=== PATIENT | female | born 1955 | race Caucasian/White ===

== ENCOUNTER 2018-06-22 07:28 | Emergency (ER) | payer BC ==
[2018-06-22 07:40] VITALS: BP 150/85
[2018-06-22] MEDS ORDERED: Lidocaine/Epineph/Tetraca SOL* (LET solution) 4 ML BTL TOPICAL ONE (08:25)
[2018-06-22] MEDS ORDERED: Ibuprofen TAB* 400 MG PO ONE (08:33)
[2018-06-22] MEDS ORDERED: Tetan/Diph/Pertus SYR(Tdap)* 0.5 ML SYR(BOOSTRIX) use SYR IM ONE (08:34)
--- NOTE | 2018-06-22 08:55 | UC ---
Laceration HPI - HPI Summary HPI Summary: WAS WALKING THROUGH HER POND ON HER PROPERTY WHEN SHE SLIPPED ON SOME ALGAE. FELL BACK AND STRUCK HER HEAD ON A ROCK. NO LOC. ALSO LACERATED HER RIGHT 1ST INTERDIGITAL WEBSPACE. LAST TETANUS ABOUT 5 YEARS AGO. - History Of Current Complaint Chief Complaint: UCLaceration Stated Complaint: HEAD LAC FINGER LAC Time Seen by Provider: 06/22/18 08:04 Hx Obtained From: Patient Laceration Location: Head - POSTERIOR SCALP AND RIGHT HAND Onset/Duration: Sudden Onset, Lasting Hours Severity: Moderate Pain Intensity: 5 Pain Scale Used: 0-10 Numeric - Allergies/Home Medications Allergies/Adverse Reactions: Allergies Allergy/AdvReac Type Severity Reaction Status Date / Time citalopram Allergy Unknown Verified 06/22/18 07:42 Reaction Details codeine Allergy See Comment Verified 06/22/18 07:42 Tetracyclines Allergy See Comment Verified 06/22/18 07:42 Home Medications: Home Medications Magnesium 30 mg PO 06/22/18 [History] PMH/Surg Hx/FS Hx/Imm Hx Previously Healthy: Yes - Surgical History Surgical History: Yes Surgery Procedure, Year, and Place: left lumpectomy;benign cyst removed; wisdom teeth - Family History Known Family History: Positive: Cardiac Disease - MOTHER WITH CHF Negative: Hypertension - Social History Alcohol Use: Daily Alcohol Amount: a few glasses of wine daily Substance Use Type: None Smoking Status (MU): Former Smoker When Did the Patient Quit Smoking/Using Tobacco: 25+ yrs ago - Immunization History Most Recent Tetanus Shot: January 2013 Review of Systems Constitutional: Negative Skin: Other - LACERATION POSTERIOR SCALP AND RIGHT HAND Respiratory: Negative Cardiovascular: Negative Gastrointestinal: Negative All Other Systems Reviewed And Are Negative: Yes Physical Exam Triage Information Reviewed: Yes Appearance: Well-Appearing, No Pain Distress, Well-Nourished Vital Signs: Initial Vital Signs Temp 97.9 F 06/22/18 07:37 Pulse 65 06/22/18 07:37 Resp 18 06/22/18 07:37 BP 150/85 06/22/18 07:37 Pulse Ox 100 06/22/18 07:37 Vital Signs Reviewed: Yes Eyes: Positive: Conjunctiva Clear ENT: Positive: Hearing grossly normal, Pharynx normal, TMs normal Neck: Positive: Supple Respiratory: Positive: No respiratory distress, No accessory muscle use Cardiovascular: Positive: Pulses Normal Abdomen Description: Positive: Soft Musculoskeletal: Positive: No Edema Neurological: Positive: Alert, Other: - CN II-XII GROSSLY INTACT BILATERALLY. RAPID ALTERNATING MOVEMENTS INTACT. NEG PRONATOR DRIFT. 5/5 STRENGTH. HEEL TO PAGE INTACT BILATERALLY. FINGER TO NOSE INTACT. Psychological: Positive: Age Appropriate Behavior Skin: Positive: Other - 2.5CM LINEAR LACERATION POSTERIOR SCALP. 1.5CM LINEAR LACERATION RIGHT HAND 1ST [employer] Laceration Repair - Laceration Repair 1 Description: Linear Laceration Size After Repair: Length (cm) - 2.5CM, Width (mm) - 0MM, Depth (mm) - 5MM Modified For Repair: No Irrigation With Pressure Irrigation Device: Yes Closure Material: Silvio - #2 2 Description: Linear Laceration Size After Repair: Length (cm) - 1.5CM, Width (mm) - 0MM, Depth (mm) - 1MM Modified For Repair: No Irrigation With Pressure Irrigation Device: Yes Closure Material: Skin Adhesive, SteriStrips Laceration Course/Dx - Differential Dx - Laceration/Wound Provider Diagnoses: 1. LACERATION REPAIR POSTERIOR SCALP AND RIGHT HAND. 2. TDAP BOOSTER Discharge - Sign-Out/Discharge Documenting (check all that apply): Patient Departure - Discharge Plan Condition: Stable Disposition: HOME Patient Education Materials: Laceration (ED), Head Injury (ED) Referrals: Alma Camargo MD [Primary Care Provider] - If Needed Additional Instructions: SEEK FOLLOW-UP IF YOU DEVELOP SPREADING REDNESS OF THE SKIN, PURULENT DRAINAGE, FEVER, INCREASED PAIN OR ANY OTHER CONCERNING SYMPTOMS. RETURN TO HAVE YOUR 2 SILVIO REMOVED IN 10 DAYS THE STERISTRIPS WILL FALL OFF ON THEIR OWN IN THE NEXT 1-2 WEEKS. DO NOT PUT ANY OINTMENT ON TOP OF THEM. DO NOT SUBMERGE IN WATER FOR PROLONGED PERIOD OF TIME. OKAY FOR BRIEF SHOWER AFTER 24 HOURS AND THEN BE SURE TO ALLOW TO DRY COMPLETELY. GO TO THE ER WITHOUT FAIL IF YOU DEVELOP UNEQUAL PUPILS, VISUAL DISTURBANCE, GAIT INSTABILITY, SPEECH DIFFICULTY, NAUSEA/VOMITING, WORSENING HEADACHE, DIZZINESS, CONFUSION, WEAKNESS OR ANY OTHER CONCERNING SYMPTOMS. TETANUS IMMUNIZATION GIVEN (TDAP): You have been given an immunization against tetanus. Please record this in your records. In general, a booster is needed only once every 10 years. The tetanus shot protects against tetanus or "lockjaw," which is a complication of certain wound infections (the tetanus shot cannot protect against the actual infection). The immunization site may become warm and red due to local reaction. If this occurs, apply warm compresses and take aspirin or ibuprofen to reduce inflammation and discomfort. Return for evaluation if the reaction becomes severe. - Billing Disposition and Condition Condition: STABLE Disposition: Home
== END 2018-06-22 09:00 | disposition home or self-care (01) ==
LOC: UCEAST 07:28
DX: S01.01XA Laceration without foreign body of scalp, initial encounter (principal); S61.411A Laceration without foreign body of right hand, initial encounter; W01.198A Fall on same level from slipping, tripping and stumbling with subsequent striking against other object, initial encounter; Y93.01 Activity, walking, marching and hiking; Y92.828 Other wilderness area as the place of occurrence of the external cause; Z23 Encounter for immunization; Z88.1 Allergy status to other antibiotic agents; Z88.5 Allergy status to narcotic agent; Z88.8 Allergy status to other drugs, medicaments and biological substances; Z87.891 Personal history of nicotine dependence
CPT/HCPCS: 12001; 12002; 12011; 90471; 90715; 99202; A9270-GY; G0463

== ENCOUNTER 2018-07-02 12:21 | Emergency (ER) | payer BC ==
[2018-07-02 14:45] VITALS: BP 145/81
--- NOTE | 2018-07-02 15:02 | UC ---
HPI Wound/Suture Re-check - HPI Summary HPI Summary: 2 hyun placed posterior scalp 06/22/18. Here for removal. Patient states it is healing well just feels a bit itchy. - History Of Current Complaint Stated Complaint: STAPLE REMOVAL Time Seen by Provider: 07/02/18 14:37 Hx Obtained From: Patient Severity: Mild Pain Intensity: 0 Pain Scale Used: 0-10 Numeric - Allergies/Home Medications Allergies/Adverse Reactions: Allergies Allergy/AdvReac Type Severity Reaction Status Date / Time citalopram Allergy Unknown Verified 07/02/18 14:37 Reaction Details codeine Allergy See Comment Verified 07/02/18 14:37 Tetracyclines Allergy See Comment Verified 07/02/18 14:37 PMH/Surg Hx/FS Hx/Imm Hx Cancer History: Breast Cancer - Surgical History Surgical History: Yes Surgery Procedure, Year, and Place: left lumpectomy;benign cyst removed; wisdom teeth - Family History Known Family History: Positive: Cardiac Disease - MOTHER WITH CHF Negative: Hypertension - Social History Alcohol Use: Daily Alcohol Amount: a few glasses of wine daily Substance Use Type: None Smoking Status (MU): Former Smoker When Did the Patient Quit Smoking/Using Tobacco: 25+ yrs ago - Immunization History Most Recent Tetanus Shot: January 2013 Review of Systems Constitutional: Negative Skin: Other - 2 [place] posterior scalp Respiratory: Negative Cardiovascular: Negative Gastrointestinal: Negative All Other Systems Reviewed And Are Negative: Yes Physical Exam Triage Information Reviewed: Yes Appearance: Well-Appearing, No Pain Distress, Well-Nourished Vital Signs: Initial Vital Signs Temp 97.8 F 07/02/18 14:37 Pulse 71 07/02/18 14:37 Resp 18 07/02/18 14:37 BP 145/81 07/02/18 14:37 Pulse Ox 97 07/02/18 14:37 Vital Signs Reviewed: Yes Eyes: Positive: Conjunctiva Clear ENT: Positive: Hearing grossly normal Neck: Positive: Supple Respiratory: Positive: No respiratory distress, No accessory muscle use Cardiovascular: Positive: Pulses Normal Abdomen Description: Positive: Soft Musculoskeletal: Positive: No Edema Neurological: Positive: Alert Psychological: Positive: Age Appropriate Behavior Skin: Positive: Other - 2 HYUN POSTERIOR SCALP WITH SOME CRUST. NO ERYTHEMA OR DRAINAGE. Course/Dx - Course Course Of Treatment: 2 HYUN REMOVED WITHOUT DIFFICULTY. - Differential Dx - Laceration/Wound Provider Diagnoses: STAPLE REMOVAL POSTERIOR SCALP Discharge - Sign-Out/Discharge Documenting (check all that apply): Patient Departure - Discharge Plan Condition: Stable Disposition: HOME Patient Education Materials: Stitches Removal (ED) Referrals: Angelica Lay [Primary Care Provider] - Additional Instructions: 2 HYUN REMOVED TODAY WITHOUT DIFFICULTY. THE CRUST WILL FLAKE OFF WITH TIME. DO NOT PICK AT IT. SEEK FOLLOW-UP IF YOU DEVELOP SPREADING REDNESS OF THE SKIN, PURULENT DRAINAGE, FEVER, INCREASED PAIN OR ANY OTHER CONCERNING SYMPTOMS. - Billing Disposition and Condition Condition: STABLE Disposition: Home
== END 2018-07-02 14:52 | disposition home or self-care (01) ==
LOC: UCEAST 12:21
DX: S01.01XD Laceration without foreign body of scalp, subsequent encounter (principal); X58.XXXD Exposure to other specified factors, subsequent encounter; Z88.1 Allergy status to other antibiotic agents; Z88.5 Allergy status to narcotic agent; Z88.8 Allergy status to other drugs, medicaments and biological substances; Z80.3 Family history of malignant neoplasm of breast; Z82.49 Family history of ischemic heart disease and other diseases of the circulatory system; Z87.891 Personal history of nicotine dependence

== ENCOUNTER 2018-07-15 07:43 | Emergency (ER) | payer BC ==
[2018-07-15 07:53] VITALS: BP 127/79
--- NOTE | 2018-07-15 08:15 | UC ---
Complaint Female HPI - HPI Summary HPI Summary: IN ROOM NOTE: A 62 y/o F presents to [facility] with c/o dysuria onset this AM. Associated sx: severe frequency. Denies n/v/d, and other complaints, states feeling well otherwise. Her last UTI was in November, she states getting them approx once a year. She does not recall the ABX given previously for UTI. Patient states drinking a lot of water. Medications reviewed. NOTE: A 62 y/o F, vital signs stable, afebrile, has c/o dysuria and frequency beginning this morning. PMHx: L breast CA 7 years ago, lumpectomy. Visit history : non-contributory to present complaint. UA is positive for blood and leukocyte esterase. Pt is allergic to tetracycline. NURSE'S NOTE: starting this morning, burning, frequency - History Of Current Complaint Chief Complaint: UCGU Stated Complaint: URINARY COMPLAINT Time Seen by Provider: 07/15/18 08:12 Hx Obtained From: Patient Hx Last Menstrual Period: na Onset/Duration: Lasting Hours - this AM, Still Present Timing: Constant, Lasting Hours Severity Initially: Moderate Severity Currently: Moderate Pain Intensity: 0 Pain Scale Used: 0-10 Numeric Associated Signs And Symptoms: Positive: Negative. Negative: Nausea, Vomiting( # Of Episodes =) - Allergies/Home Medications Allergies/Adverse Reactions: Allergies Allergy/AdvReac Type Severity Reaction Status Date / Time citalopram Allergy Unknown Verified 07/15/18 07:53 Reaction Details codeine Allergy See Comment Verified 07/15/18 07:53 Tetracyclines Allergy See Comment Verified 07/15/18 07:53 PMH/Surg Hx/FS Hx/Imm Hx Previously Healthy: No - breast CA Respiratory History: Bronchitis Psychological History: Anxiety - Surgical History Surgical History: Yes Surgery Procedure, Year, and Place: left lumpectomy;benign cyst removed; wisdom teeth - Family History Known Family History: Positive: Cardiac Disease - MOTHER WITH CHF, at 92 Negative: Hypertension - Social History Occupation: Employed Full-time Lives: With Family Alcohol Use: Daily Alcohol Amount: a few glasses of wine daily Substance Use Type: None Smoking Status (MU): Former Smoker When Did the Patient Quit Smoking/Using Tobacco: 25+ yrs ago - Immunization History Most Recent Tetanus Shot: January 2013 Review of Systems Constitutional: Negative - fever Gastrointestinal: Negative - n/v/d Genitourinary: Dysuria, Frequency All Other Systems Reviewed And Are Negative: Yes - Comments Additional Review of Systems Comments: POSITIVE: DYSURIA, FREQUENCY NEGATIVE: N/V/D, ALL OTHER SYSTEMS Physical Exam - Summary Physical Exam Summary: Appearance: The patient is well-appearing, is in no pain distress, and is well- nourished. Eyes: Conjunctiva are clear. ENT: The hearing is grossly normal, the pharynx is normal, and the TMs are normal. There is no muffled or hoarse voice. Neck: The neck is supple and there is no lymphadenopathy. Respiratory: The chest is nontender. The lungs are clear, there are normal breath sounds, and there is no respiratory distress. Cardiovascular: Heart is regular rate and rhythm. There is no murmur. Abdomen: The abdomen is soft and nontender. There is no organomegaly. NO CVA TENDERNESS. NO SUPRAPUBIC TENDERNESS. Bowel sounds: present Musculoskeletal: Strength is intact. The patient moves all extremities. Neurological: The patient is alert. Psychological: The patient displays age appropriate behavior Skin: Negative for rashes. Triage Information Reviewed: Yes Vital Signs: Initial Vital Signs Temp 98.0 F 07/15/18 07:48 Pulse 72 07/15/18 07:48 Resp 18 07/15/18 07:48 BP 127/79 07/15/18 07:48 Pulse Ox 100 07/15/18 07:48 Vital Signs Reviewed: Yes Complaint Female Dx - Course Course Of Treatment: Medications have been included in the original chart and reviewed. A healthy 62 y/o F with cystitis. No evidence of pyelonephritis. Pt will be treated with Bactrim and Pyridium. Patient has been given an antibiotic because findings on physical examination and health history. The risks and benefits of antibiotic treatment have been discussed and patient has voiced understanding of these risks including the possibility of developing clostridium difficile enterocolitis. Pre-Hypertensive BP reading of 127/79; patient referred to PCP for follow-up. - Differential Dx/Diagnosis Provider Diagnoses: Cystitis Discharge - Sign-Out/Discharge Documenting (check all that apply): Patient Departure - DC All imaging exams completed and their final reports reviewed: No Studies - Discharge Plan Condition: Stable Disposition: HOME Prescriptions: Phenazopyridine TAB* [Pyridium TAB*] 200 mdi PO TID #6 tab Sulfamethox/Trimethoprim DS* [Bactrim DS 800/160 TAB*] 1 tab PO BID #10 tab Patient Education Materials: Phenazopyridine (By mouth), Urinary Tract Infection in Women (DC) Referrals: Asuncion GARZON,Angelica Contreras [Primary Care Provider] - Additional Instructions: PLEASE SEEK CARE AT THE EMERGENCY DEPARTMENT IF SYMPTOMS WORSEN OR IF NEW SYMPTOMS DEVELOP. FOLLOW UP WITH YOUR PRIMARY CARE PHYSICIAN. Your blood pressure reading today was 127/79, indicating PREHYPERTENSION. Follow -up with your primary care provider or check blood pressure in some other way within 4 weeks for blood pressure readings and further evaluation, if needed. Your blood pressure should read less than 120/80. WE DISCUSSED: You have a bladder infection. Take Bactrim, twice a day for 5 days. Take Pyridium for up to two days for discomfort. You should NOT develop increased pain or temperature. If you do, call us or come in for a re check. - Billing Disposition and Condition Condition: STABLE Disposition: Home - Attestation Statements Document Initiated by Scribe: Yes Documenting Scribe: Tejas Valdes Provider For Whom Scribe is Documenting (Include Credential): Efren Silveira MD Scribe Attestation: ITejas, scribed for Efren Silveira MD on 07/15/18 at 0833. Scribe Documentation Reviewed: Yes Provider Attestation: The documentation as recorded by the scribeTejas accurately reflects the service I personally performed and the decisions made by me, Efren Silveira MD Lab Results - Lab Results Lab Results: 07/15/18 08:02 POC Urine Color Swati POC Urine Clarity Slightly cloudy POC Urine pH 5.5 POC Ur Specif [place] <= 1.005 L POC Urine Protein Negative POC Ur Glucose (UA) Negative POC Urine Ketones Negative POC Urine Blood 3+ A POC Urine Nitrite Negative POC Urine Bilirubin Negative POC Urine Urobilinogen 0.2 POC U Leukocyte Esteras 1+ A
== END 2018-07-15 08:45 | disposition home or self-care (01) ==
LOC: UCEAST 07:43
DX: N30.90 Cystitis, unspecified without hematuria (principal); R03.0 Elevated blood-pressure reading, without diagnosis of hypertension; Z87.440 Personal history of urinary (tract) infections; Z88.1 Allergy status to other antibiotic agents; Z88.5 Allergy status to narcotic agent; Z88.8 Allergy status to other drugs, medicaments and biological substances; Z87.891 Personal history of nicotine dependence
CPT/HCPCS: 81003; 87077; 87086; 87186; 99202; G0463

== ENCOUNTER 2022-07-14 08:21 | Observation (INO) ==
[2022-07-14 12:01] LABS: ABS Monocytes 0.4 10^3/ul (0-0.8); ABS Neutrophils 9.4 10^3/ul (1.5-7.7); Eosinophil % 0.1 %; Hematocrit 41 % (35-47); Lymphocyte % 9.3 %; Mean Corpuscular HGB Conc 34 g/dL (31-36); Mean Corpuscular Hemoglobin 32 pg (27-31); Mean Corpuscular Volume 93 fL (80-97); Mean Platelet Volume 7.3 fL (7.4-10.4); Platelet Count 232 10^3/uL (150-450); Red Blood Count 4.43 10^6 /uL (3.70-4.87); Red Cell Distribution Width 13 % (10-15); White Blood Count 10.9 10^3/uL (3.5-10.8)
[2022-07-14 12:43] LABS: Albumin 4.3 g/dL (3.2-5.2); Albumin/Globulin Ratio 1.7 (1-3); C Reactive Protein 267.03 mg/L (<8.01); Calcium 9.6 mg/dL (8.6-10.3); Globulin 2.6 g/dL (2-4); Total Protein 6.9 g/dL (6.4-8.9); eGFR CKD-EPI 94.8 (>60)
[2022-07-14] MEDS ORDERED: Lactated Ringers 1000 ml BAG 1,000 ML IV ONE (13:30)
[2022-07-14] MEDS ORDERED: Iohexol 350 (CONTRAST) 500 ML MDV IV ONE (14:12)
[2022-07-14] MEDS ORDERED: Iodixanol (CONTRAST) 320 MG/ML 100 ML SDV IV ONE (14:28)
[2022-07-14] MEDS ORDERED: Piperacillin/Tazobac ADVAN 3.375 GM in NS 0.9% 100 ml BAG 100 ML IV ONE (16:24)
[2022-07-14] MEDS ORDERED: Morphine 2 MG/ML SYRINGE IV PRN (16:26)
[2022-07-14] MEDS ORDERED: NS 0.9% 1000 ml BAG 1,000 ML IV SCH (16:30)
[2022-07-14] MEDS ORDERED: Zosyn per Pharmacy NOTE FOLLOW UP SCH (17:00)
[2022-07-14] MEDS ORDERED: Succinylcholine 200 mg VIAL 20 mg/ml 10 ml VIAL (200 mg) ONE (17:01)
[2022-07-14] MEDS ORDERED: Ondansetron 4 mg VIAL 2 MG/ML 2 ml VIAL ONE ×2 (17:01→18:50)
[2022-07-14] MEDS ORDERED: Rocuronium 50 mg VIAL 10 mg/ml 5 ml VIAL (50 mg) ONE (17:01)
[2022-07-14] MEDS ORDERED: Propofol 10 MG/ML 20 ML BTL ONE ×2 (17:01→18:50)
[2022-07-14] MEDS ORDERED: Dexamethasone IV 4 MG/ML VIAL 1 ml VIAL ONE ×2 (17:01→18:50)
[2022-07-14] MEDS ORDERED: Lidocaine 2% PF 5 ML VIAL ONE (17:03)
[2022-07-14] MEDS ORDERED: fentaNYL 100 mcg/2 ml 50 MCG/ML VIAL ONE (17:03)
[2022-07-14] MEDS ORDERED: Bupivacaine 0.25% EPI 200,000 30 ML SDV ONE (17:05)
[2022-07-14] MEDS ORDERED: Ondansetron 4 mg VIAL 2 MG/ML 2 ml VIAL IV PRN ×2 (18:06→21:42)
[2022-07-14] MEDS ORDERED: fentaNYL 100 mcg/2 ml 50 MCG/ML VIAL IV PRN (18:06)
[2022-07-14] MEDS ORDERED: Prochlorperazine 5 mg/ml 2 ml VIAL (10 mg) IV PRN (18:06)
[2022-07-14] MEDS ORDERED: Naloxone 0.4 mg VIAL 0.4 mg/ml 1 ml VIAL IV PRN (18:06)
[2022-07-14] MEDS ORDERED: HYDROmorphone 0.5 MG/0.5 ML SYRINGE ONE (18:08)
[2022-07-14] MEDS ORDERED: Phenylephrine 40 mcg/mL 10mL (400mcg) SYRINGE ONE (18:28)
[2022-07-14] MEDS ORDERED: Acetaminophen IV 1 GM/100ML 1,000 MG/100 ML BAG IV ONE (18:35)
[2022-07-14] MEDS ORDERED: Metoprolol Tartrate 5 mg VIAL 5 ml VIAL (1 mg/ml) ONE (18:42)
[2022-07-14] MEDS ORDERED: Metoclopramide 5 MG/ML VIAL (10 mg) ONE (18:43)
[2022-07-14] MEDS ORDERED: HYDROmorphone 1 MG/1 ML SYRINGE IV SLOW PU PRN (21:42)
[2022-07-14] MEDS ORDERED: Lactated Ringers 1000 ml BAG 1,000 ML IV SCH (22:00)
[2022-07-14] MEDS ORDERED: Piperacillin/Tazobactam VIAL 3.375 GM in NS 0.9% 100 ml BAG 100 ML IVPB SCH (22:00)
[2022-07-14] MEDS: ZOSYN 3.375 GM Q8H per EXTENDED INFUSION IV SCH (23:18)
[2022-07-15] MEDS: ZOSYN 3.375 GM Q8H per EXTENDED INFUSION IV SCH ×2 (05:31→14:05)
[2022-07-15 11:14] VITALS: BP 100/53
[2022-07-15] MEDS ORDERED: NS 0.9% 1000 ml BAG 1,000 ML IV SCH (14:09)
== END 2022-07-15 16:35 | disposition home or self-care (01) ==
LOC: ED 08:21 → SSU 17:11 → OR 17:11
PROVIDERS: ADMIT Surgery; ATTEND Surgery